=== PATIENT | male | born 2000 | race African-American/Black ===

== ENCOUNTER 2023-11-02 21:15 | Emergency (ER) | payer SELFPAY ==
[2023-11-02 23:11] LABS: Bilirubin Negative (Negative); Blood, Urine Negative (Negative); Glucose, Urine (Dipstick) Negative (Negative); Ketone, Urine Negative (Negative); Leukocyte Negative (Negative); Nitrite Negative (Negative); Protein, Urine (Dipstick) Negative (Neg-Trace); Urobilinogen 0.2 mg/dL (Less than 2)
[2023-11-02 23:16] LABS: Clarity Clear (Clear)
[2023-11-02 23:17] LABS: Bacteria/HPF None Seen HPF (None Seen); CAUTI Indications for Culture Pelvic or flank pain; RBC/HPF 0-3 HPF (0-3); Squamous Epithelial 0-3 HPF (0-3); WBC/HPF 0-3 HPF (0-3)
[2023-11-02 23:24] LABS: Urine Culture Reflex No No
[2023-11-03 13:15] LABS: Chlam.trachomatis by PCR,Urine Not Detected (NotDetected); GC N.gonorrhoeae PCR,UrineVOID Not Detected (NotDetected)
== END 2023-11-03 00:50 | disposition home or self-care (01) ==
LOC: ERS 21:15
DX: N50.89 Other specified disorders of the male genital organs (principal); F17.210 Nicotine dependence, cigarettes, uncomplicated
CPT/HCPCS: 76870; 81001; 87491; 87591; 93976

== ENCOUNTER 2025-04-10 13:42 | Emergency (ER) | payer SELFPAY | END 2025-04-10 16:57 | disposition home or self-care (01) | LOC: ERS 13:42 | DX: S82.51XA Displaced fracture of medial malleolus of right tibia, initial encounter for closed fracture (principal); S82.431A Displaced oblique fracture of shaft of right fibula, initial encounter for closed fracture; F17.290 Nicotine dependence, other tobacco product, uncomplicated; V86.56XA Driver of dirt bike or motor/cross bike injured in nontraffic accident, initial encounter | CPT/HCPCS: 29515; 96372; 99283 ==